=== PATIENT | male | born 1980 ===

== ENCOUNTER → 2016-07-09 | Outpatient (CLI) | payer OTHER | LOC: CIMAGING 15:31 | PROVIDERS: ATTEND Family Medicine | DX: M79.671 Pain in right foot (principal) | CPT/HCPCS: 73650-PO ==

== ENCOUNTER → 2016-12-30 | Outpatient (CLI) | payer OTHER | LOC: CIMAGING 16:27 | PROVIDERS: ATTEND Family Medicine | DX: M54.5 Low back pain (principal); M54.2 Cervicalgia | CPT/HCPCS: 72040-PO; 72114-PO ==

== ENCOUNTER → 2017-12-12 | Outpatient (CLI) | payer OTHER | LOC: CIMAGING 16:16 | PROVIDERS: ATTEND Family Medicine | DX: M79.641 Pain in right hand (principal); M70.941 Unspecified soft tissue disorder related to use, overuse and pressure, right hand | CPT/HCPCS: 73130-PO ==

== ENCOUNTER → 2017-12-15 | Outpatient (CLI) | payer OTHER | LOC: FIMAGING 13:42 | PROVIDERS: ATTEND Family Medicine | DX: S86.812A Strain of other muscle(s) and tendon(s) at lower leg level, left leg, initial encounter (principal) ==